=== PATIENT | male | born 1985 | race Caucasian/White ===

== ENCOUNTER 2016-12-20 22:01 | Emergency (ER) | payer BC ==
[~2016-12-20 22:01] MED LIST: FLEXERIL10 MG PO; METHADOSE40 M1 PO; MOTRIN PO; NEURONTIN600 MG; NO MEDICATIONS; SEROQUEL
== END 2016-12-20 22:16 | disposition home or self-care (01) ==
LOC: SED 22:01
DX: R10.9 Unspecified abdominal pain (principal); R11.0 Nausea; R03.0 Elevated blood-pressure reading, without diagnosis of hypertension; F17.210 Nicotine dependence, cigarettes, uncomplicated
CPT/HCPCS: 99283

== ENCOUNTER 2017-04-30 11:27 | Emergency (ER) | payer BC | END 2017-04-30 12:20 | disposition home or self-care (01) | LOC: SED 11:27 | DX: R11.0 Nausea (principal); F17.200 Nicotine dependence, unspecified, uncomplicated | CPT/HCPCS: 99283 ==